=== PATIENT | male | born 1960 | race Asian ===

== ENCOUNTER → 2016-09-16 | Outpatient (CLI) | payer BC ==
--- NOTE | 2016-09-16 14:21 | DIAGNOSTIC IMAGING REPORT ---
KUB CLINICAL HISTORY: Right flank pain. Kidney stones. COMPARISON STUDY: Chest CT March 24, 2016. FINDINGS: Bowel gas pattern is normal. A few pelvic calcifications are indeterminate although statistically reflect phleboliths. A few left punctate renal calculi are present. There are numerous calculi within lower pole of the right kidney. There are clustered calcifications within the upper pole of the right kidney. In aggregate, these measure 2.8 x 2 cm. IMPRESSION: 1. Bilateral nephrolithiasis. 2. Clustered calcifications projecting over the upper pole of the right kidney. These were shown to be cortical/capsular on prior CT. These could be within a diverticulum. 3. A few punctate pelvic calcifications which are indeterminate although statistically reflect phleboliths. Electronically signed by: Everett Ashton M.D. 09/16/2016 2:20 PM Dictated Date/Time: 09/16/2016 2:14 PM
== END | disposition home or self-care (01) ==
LOC: C.LAB 13:30
PROVIDERS: ATTEND Urology
DX: N40.0 Benign prostatic hyperplasia without lower urinary tract symptoms (principal); N20.0 Calculus of kidney; R93.5 Abnormal findings on diagnostic imaging of other abdominal regions, including retroperitoneum

== ENCOUNTER → 2017-01-13 | Outpatient (CLI) | payer BC ==
[2017-01-13 09:47] LABS: ESTIMATED AVERAGE GLUCOSE 183 mg/dl; HA1C FLAG Normal (Normal)
== END | disposition home or self-care (01) ==
LOC: C.LAB1850 08:37
PROVIDERS: ATTEND Nurse Practitioner
DX: E11.9 Type 2 diabetes mellitus without complications (principal)